=== PATIENT | female | born 1950 | race Hispanic/Latino ===

== ENCOUNTER → 2018-05-17 | Outpatient (CLI) | payer OTHER | END | disposition home or self-care (01) | LOC: OIH 09:40 | PROVIDERS: ATTEND Family Medicine | DX: M17.11 Unilateral primary osteoarthritis, right knee (principal); I71.4 Abdominal aortic aneurysm, without rupture | CPT/HCPCS: 73562 ==

== ENCOUNTER → 2019-06-23 | Outpatient (CLI) | payer OTHER ==
[~2019-06-23] MED LIST: IOHEXOL 350 MG/ML 100ML INFUS..BTL IV ONE
== END | disposition home or self-care (01) ==
LOC: RAH 08:41
PROVIDERS: ATTEND Internal Medicine Gastroenterology
DX: C16.9 Malignant neoplasm of stomach, unspecified (principal); K76.9 Liver disease, unspecified; K44.9 Diaphragmatic hernia without obstruction or gangrene; J98.11 Atelectasis; M47.816 Spondylosis without myelopathy or radiculopathy, lumbar region; M43.8X4 Other specified deforming dorsopathies, thoracic region; I70.0 Atherosclerosis of aorta; Z90.710 Acquired absence of both cervix and uterus
CPT/HCPCS: 74178; Q9967